=== PATIENT | female | born 1990 | race Two or more races ===

== ENCOUNTER 2019-06-03 13:14 | Emergency (ER) | payer OTHER ==
[2019-06-03 13:32] VITALS: BMI 53.7
--- NOTE | 2019-06-03 14:58 | PDOC ---
History of Present Illness - General History Source: Patient Exam Limitations: No Limitations - History of Present Illness Initial Comments: 06/03/19 15:30 Patient is a 29-year-old female who is 38 weeks gestation who presents to the ED after being sent by her nurse digital sales planner for possible preeclampsia or eclampsia. The patient went for her normal checkup and was found to have hypertension with unknown blood pressure numbers. The patient denies any headaches or visual changes. She denies any shortness of breath. She does admit to having swelling in her lower extremities for the last 1 or 2 months. She denies any fevers or chills. <Missy Troncoso - Last Filed: 06/03/19 15:48> <Milton Fields - Last Filed: 06/07/19 10:33> - General Chief Complaint: Blood Pressure Problem Stated Complaint: 38 W PREG/BP PROBLEM Time Seen by Provider: 06/03/19 14:37 Past History - Past Medical History COPD: No Other medical history: SLEEP APENA - Immunization History Immunization Up to Date: Yes - Psycho Social/Smoking Cessation Hx Smoking History: Former smoker Have you smoked in the past 12 months: No Information on smoking cessation initiated: No Hx Alcohol Use: No Drug/Substance Use Hx: No <Missy Troncoso - Last Filed: 06/03/19 15:48> <Milton Fields - Last Filed: 06/07/19 10:33> - Past Medical History Allergies/Adverse Reactions: Allergies Allergy/AdvReac Type Severity Reaction Status Date / Time No Known Allergies Allergy Verified 06/03/19 13:28 Home Medications: Ambulatory Orders Vitamins (Sjr) - 1 tab PO DAILY 06/01/19 Review of Systems - Review of Systems Comments:: 06/03/19 15:31 - Review of Systems Able to Perform ROS?: Yes Constitutional: No: Fever, Chills, Loss of Appetite, Night Sweats, Weakness HEENTM: No: Eye Pain, Vision changes, Ear Pain, Throat Pain, Throat Swelling, Mouth Pain, Difficulty Swallowing Respiratory: No: Cough, Shortness of Breath, Wheezing, Sputum Production Cardiac (ROS): No: Chest Pain, Chest Tightness, Palpitations, Irregular Heart Beat, Edema; Positive high blood pressure ABD/GI: No: Nausea, Vomiting, Abdominal Pain, Diarrhea; Positive : No Dysuria, No Hematuria, No Frequency, No Urgency, No Vaginal Discharge/ Pain, Musculoskeletal: No: Muscle Pain, Back Pain, Joint Pain, Muscle Weakness, Neck Pain; Positive pedal edema Integumentary: No: Lesions, Rash Neurological: No: Headache, Numbness, Tingling, Weakness, Speech Difficulties <Missy Troncoso D - Last Filed: 06/03/19 15:48> *Physical Exam - Vital Signs Last Vital Signs Temp Pulse Resp BP Pulse Ox 98.4 F 105 H 18 144/81 96 06/03/19 13:28 06/03/19 13:28 06/03/19 13:28 06/03/19 13:28 06/03/19 13:28 - Physical Exam 06/03/19 15:32 - Physical Exam General Appearance: Nourished, Appropriately Dressed, No Distress HEENT: EOMI, Normal Voice, No Muffled/Hoarse voice, No Nasal Congestion, No Rhinorrhea, Hearing Grossly Normal Neck: Supple, No Lymphadenopathy (R), No Lymphadenopathy (L), No Rigidity, No Decreased range of motion Respiratory/Chest: Lungs Clear, Normal Breath Sounds. No Respiratory Distress, No Accessory Muscle Use Cardiovascular: Regular Rhythm, Regular Rate, S1, S2 Gastrointestinal/Abdominal: Normal Bowel Sounds, Soft. Non-tender, No Guarding , No Rebound, No Rigidity; Positive gravid uterus Musculoskeletal: Normal Inspection. No Decreased Range of Motion; 2+ pitting edema bilateral lower extremities Extremity: Normal Capillary Refill, Normal Inspection Integumentary: Normal Color, Dry. No Rash Neurologic: stock raiser II-XII NML intact, Fully Oriented, Alert, Normal Mood/Affect, Normal Response, Normal gait without ataxia <Missy Troncoso D - Last Filed: 06/03/19 15:48> - Vital Signs Last Vital Signs Temp Pulse Resp BP Pulse Ox 98.7 F 95 H 20 119/68 96 06/03/19 16:04 06/03/19 17:30 06/03/19 17:30 06/03/19 17:30 06/03/19 13:28 <Milton Fields - Last Filed: 06/07/19 10:33> ED Treatment Course - LABORATORY CBC & Chemistry Diagram: 06/03/19 16:30 06/03/19 16:30 - ADDITIONAL ORDERS Additional order review: 06/03/19 16:30 RBC 4.38 MCV 75.3 L MCHC 32.7 RDW 17.5 H MPV 7.8 Neutrophils % 80.6 Lymphocytes % 14.4 Monocytes % 4.0 Eosinophils % 0.8 Basophils % 0.2 <Milton Fields - Last Filed: 06/07/19 10:33> Medical Decision Making - Medical Decision Making 06/03/19 14:52 Assessment: Patient is a 29-year-old female sent to the ED by her DIRECTOR OF EXHIBITS to assess for eclampsia/preeclampsia. She is 38 weeks gestation. Plan: The patient is not in active labor. Patient is without headache, or visual changes and is stable for transfer to labor and delivery for further evaluation and treatment. I spoke with Tessy in labor and delivery and she stated to send the patient right up for further evaluation and treatment. <Missy Troncoso - Last Filed: 06/03/19 15:48> - Medical Decision Making The patient was seen and evaluated in conjunction with KINZA Troncoso under my direct supervision, ancillary studies were reviewed. I agree with the plan as outlined by KINZA Troncoso. <Milton Fields - Last Filed: 06/07/19 10:33> Discharge - Discharge Information Problems reviewed: Yes <Missy Troncoso - Last Filed: 06/03/19 15:48> <Milton Fields - Last Filed: 06/07/19 10:33> - Discharge Information Clinical Impression/Diagnosis: Hypertension affecting in third trimester Condition: Stable Disposition: HOME - Additional Discharge Information Plan of Treatment: Pt to be transferred to Labor and Delivery for further evaluation of hypertension in and to assess for preeclampsia/eclampsia - Follow up/Referral Referrals: Nella Plaza MD [Staff Physician] - Azar Balderas MD [Primary Care Provider] - - Patient Discharge Instructions Additional Instructions: Patient to L&D for blood pressure check and labs. Denies any complaints of headache, epigastric pain, blurry vision at this time. As per MD - d/c home with instructions. Keep f/u appointment. Patient verbalized understanding. D/ c home in stable and undelivered condition. - Post Discharge Activity
[2019-06-03 16:10] VITALS: TEMP 98.7
[2019-06-03 16:32] LABS: EPI CELLS 10.2 /HPF (0-5/HPF); HYALINE CASTS 27 /lpf (0-8); URINE APPEARANCE CLOUDY; URINE BILIRUBIN NEGATIVE (NEGATIVE); URINE COLOR YELLOW; URINE GLUCOSE (UA) NEGATIVE (NEGATIVE); URINE KETONE NEGATIVE (NEGATIVE); URINE LEUK ESTERASE TRACE (NEGATIVE); URINE NITRITE NEGATIVE (NEGATIVE); URINE PROTEIN NEGATIVE (NEGATIVE); URINE UROBILINOGEN 0.2 mg/dL (0.2-1.0); URINE WBC 62 /hpf (0-5)
[2019-06-03 17:20] LABS: BASO % 0.2 % (0-2.0); EOS % 0.8 % (0-4.5); HEMATOCRIT 32.9 % (32.4-45.2); HEMOGLOBIN 10.8 GM/dL (10.7-15.3); LYMPH % 14.4 % (8-40); MCH 24.6 pg (25.7-33.7); MCHC 32.7 g/dl (32.0-36.0); MEAN CELL VOLUME 75.3 fl (80-96); MEAN PLT VOLUME 7.8 fl (7.5-11.1); NEUT % 80.6 % (42.8-82.8); PLATELET COUNT 255 K/MM3 (134-434); RBC 4.38 M/mm3 (3.60-5.2); RDW 17.5 % (11.6-15.6); WHITE BLOOD COUNT 12.5 K/mm3 (4.0-10.0)
[2019-06-03 17:33] LABS: INR 0.93 (0.83-1.09)
[2019-06-03 17:36] LABS: ACTIVATED PTT 29.2 SECONDS (25.2-36.5)
[2019-06-03 17:41] LABS: BLOOD UREA NITROGEN 7.8 mg/dL (7-18); CALCIUM 8.4 mg/dL (8.5-10.1); CREATININE 0.7 mg/dL (0.55-1.3); POTASSIUM 3.7 mmol/L (3.5-5.1)
[2019-06-03 17:42] LABS: URIC ACID 4.6 mg/dL (2.6-7.2)
[2019-06-03 17:56] VITALS: BP 119/68; PULSE 95
[2019-06-03 18:38] LABS: RETICULOCYTES 1.53 % (0.5-1.5)
[2019-06-03 19:48] LABS: YEAST NEGATIVE (NEGATIVE)
== END 2019-06-03 17:59 | disposition home or self-care (01) ==
LOC: JER 13:14
DX: O14.93 Unspecified pre-eclampsia, third trimester (principal); Z3A.38 38 weeks gestation of pregnancy
CPT/HCPCS: 36415; 80048; 81003; 82570; 83010; 84156; 84450; 84460; 84550; 85025; 85044; 85610; 85730; 86593; 86850; 86900; 86901; 99283-25

== ENCOUNTER 2019-06-13 06:30 | Inpatient (IN) | payer OTHER ==
[2019-06-13] MEDS: ELECTROLYTE-148 SOLN 1,000 ML IV SCH (07:15)
--- NOTE | 2019-06-13 07:45 | HP ---
Past Medical History - Primary Care Physician PCP:: Gerardo Shelton - Admission Chief Complaint: 39.3 weeks, rom, labor , morbid obesity History of Present Illness: 29 yo f 0 1 0, 39,3 weeks, [facility] 6 am today, clear fluid , has mild contraction since 630 am today , care significant for morbid obesity cx 2 cm 70 vx -3 , gross rom , positive for bloody show, nitazine positive, History Source: Patient Limitations to Obtaining History: No Limitations - Past Medical History ...: 3 ...Para: 0 ...Term: 0 ...: 0 - Past Surgical History Hx Myomectomy: No Hx Transabdominal Cerclage: No - Smoking History Smoking history: Former smoker Have you smoked in the past 12 months: No - Alcohol/Substance Use Hx Alcohol Use: No History of Substance Use: reports: None - Social History History of Recent Travel: No Home Medications - Allergies Allergies/Adverse Reactions: Allergies Allergy/AdvReac Type Severity Reaction Status Date / Time No Known Allergies Allergy Verified 06/09/19 12:31 - Home Medications Home Medications: Ambulatory Orders Vitamins (Sjr) - 1 tab PO DAILY 06/01/19 Review of Systems - Review of Systems Constitutional: reports: No Symptoms Eyes: reports: No Symptoms HENT: reports: No Symptoms Neck: reports: No Symptoms Cardiovascular: reports: No Symptoms Respiratory: reports: No Symptoms Gastrointestinal: reports: No Symptoms Genitourinary: reports: No Symptoms Breasts: reports: No Symptoms Reported Musculoskeletal: reports: No Symptoms Integumentary: reports: No Symptoms Neurological: reports: No Symptoms Endocrine: reports: No Symptoms Hematology/Lymphatic: reports: No Symptoms Psychiatric: reports: No Symptoms Physical Exam - Maternity Constitutional: Yes: Obese - Abdominal Exam/OB Fundal Height: 40 Number of Fetuses: Single Presentation: Vertex Contractions: Yes Regularity: Irregular Intensity: Moderate Monitor Mode: External Heart Rate Location: [facility] Category: I Accelerations: Non-Uniform Decelerations: None - Vaginal Exam/OB Vaginal Bleediing: Bloody Show Speculum Exam: No Dilatation (cm): 2 Effacement (%): 70 Amniotic Membrane Status: Ruptured Nitrazine Test: Positive Amniotic Fluid: Yes: Blood Stained Presentation: Vertex/Position Station: -3 - Physical Exam Musculoskeletal: Yes: WNL Edema: Yes Edema: LLE: 1+, RLE: 1+ Deep Tendon Reflex Grade: Normal +2 Hemorrhage Risk Assessment - Risk Factors Medium Risk Factors: Yes: Obesity (BMI >40) Risk Score: 1 Risk Level: Medium Risk Problem List - Problems (1) with 39 completed weeks gestation Code(s): Z3A.39 - 39 WEEKS GESTATION OF (2) membrane rupture Code(s): UCA3621 - (3) Morbid obesity due to excess calories Code(s): E66.01 - MORBID (SEVERE) OBESITY DUE TO EXCESS CALORIES (4) Gestational [-induced] hypertension without significant proteinuria , complicating childbirth Code(s): O13.4 - GESTATNL HTN WITHOUT SIGNIFICANT PROTEIN, COMP CHILDBIRTH Assessment/Plan admit FHM monitor BP DVT prophylaxis
[2019-06-13 08:13] LABS: BASO % 0.4 % (0-2.0); EOS % 0.5 % (0-4.5); HEMATOCRIT 37.7 % (32.4-45.2); HEMOGLOBIN 12.5 GM/dL (10.7-15.3); LYMPH % 13.9 % (8-40); MCH 24.8 pg (25.7-33.7); MEAN CELL VOLUME 75.1 fl (80-96); MEAN PLT VOLUME 7.9 fl (7.5-11.1); MONO % 2.9 % (3.8-10.2); NEUT % 82.3 % (42.8-82.8); PLATELET COUNT 289 K/MM3 (134-434); RBC 5.03 M/mm3 (3.60-5.2); RDW 17.7 % (11.6-15.6); WHITE BLOOD COUNT 11.9 K/mm3 (4.0-10.0)
[2019-06-13 08:29] LABS: INR 0.93 (0.83-1.09)
[2019-06-13 08:30] VITALS: BMI 61.1
[2019-06-13 08:32] LABS: ACTIVATED PTT 27.7 SECONDS (25.2-36.5)
[2019-06-13 08:33] LABS: BLOOD UREA NITROGEN 12.7 mg/dL (7-18); CALCIUM 8.3 mg/dL (8.5-10.1); CREATININE 0.6 mg/dL (0.55-1.3); POTASSIUM 3.9 mmol/L (3.5-5.1)
[2019-06-13 08:58] LABS: RPR NONREACTIVE (NONREACTIVE)
[2019-06-13] MEDS ORDERED: CITRIC ACID/SODIUM CITRATE 30 ML UNIT-DOSE CUP PO ONE (11:42)
[2019-06-13] MEDS ORDERED: ELECTROLYTE-148 SOLN 500 ML IV ONE (11:42)
--- NOTE | 2019-06-13 11:54 | PN ---
Ante-Partal Exam - Subjective Subjective: Patient evaluated for progression of labor and bloody amniotic fluid. Patient reports feeling contractions and SROM at 6am today. Vital Signs: Vital Signs Temperature 98.5 F 06/13/19 11:00 Pulse Rate 102 H 06/13/19 11:00 Respiratory Rate 06/13/19 11:00 Blood Pressure 125/74 06/13/19 11:00 O2 Sat by Pulse Oximetry (%) Bleeding: Yes (stained amniotic fluid) Bleeding Description: Heavy Headache: No Visual changes: No Right upper quadrant pain: No - Contractions Contractions: Yes Regularity: Regular Intensity: Moderate Monitor Mode: External - Exam during Labor Heart Rate: 150 Variability: Moderate Category: I Monitor Accelerations: Present Monitor Decelerations: None Exam: Vaginal Dilatation (cm): 1 Effacement (%): 20 Amniotic Membrane Status: Leaking (pronounced blood stained amniotic fluid) Presentation: Vertex Station: -3 - Assessment/Plan Assessment/Plan: 29 y/o P0 @ 39.3 wks, S/P AROM, FHT cat I, alexander bloody stained amniotic fluid in the background of GHTN. Patient was counseled regarding her condition, bleeding, and status. The concerns for early abruption discussed. Patient was offered IOL vs CD. Their respective risks, possible complications, and possible sequelae discussed at length. Patient allowed time to formulate decision and all questions answered. Patient has decided to proceed with CD. -Proceed with surgery -NICU and perianesthesia manager informed -Informed consent obtained -DVT chemo-prophylaxis post-op
[2019-06-13] MEDS ORDERED: OXYTOCIN 20 UNITS in 0.9% NS 40 UNIT/2,000 ML INFUS.BAG IV ONE (11:56)
[2019-06-13] MEDS ORDERED: ceFAZolin SODIUM 1 GM VIAL ONE (11:58)
[2019-06-13] MEDS ORDERED: morphine SULFATE/PF 0.5 MG/ML (2cc Syringe - QUVA) ONE (11:59)
[2019-06-13] MEDS ORDERED: LIDOCAINE HCL/PF 2% SDV 5ML VIAL ONE (13:20)
[2019-06-13] MEDS ORDERED: DEXAMETHASONE SOD PHOSPHATE 4 MG/1 ML VIAL ONE (13:20)
[2019-06-13] MEDS ORDERED: OXYTOCIN 10 UNITS/ML VIAL ONE (13:20)
[2019-06-13] MEDS ORDERED: KETOROLAC TROMETHAMINE 30 MG/1 ML VIAL ONE (13:27)
[2019-06-13] MEDS: OXYTOCIN 20 UNITS in 0.9% NS 20 UNIT/1,000 ML INFUS.BAG IV SCH (13:40)
[2019-06-13] MEDS ORDERED: MIDAZOLAM HCL 2 MG/2 ML SINGLE DOSE VIAL ONE (13:44)
[2019-06-13] MEDS ORDERED: IBUPROFEN 800 MG/8 ML IJ IVPB PRN ×2 (14:12→14:13)
[2019-06-13] MEDS ORDERED: ONDANSETRON 4 MG/2 ML VIAL IVPUSH PRN (14:12)
--- NOTE | 2019-06-13 14:12 | OP ---
Operative Note - Note: Operative Date: 06/13/19 (dic # [id number]) Pre-Operative Diagnosis: 29 y/o P0 @ 39.3wks, bloody amniotic fluid, suspected clinical abruption Operation: PTLCS Post-Operative Diagnosis: Same as Pre-op Surgeon: Von Oliver Auto Design Detailer: Gilbert Jackson Anesthesia: Spinal Specimens Removed: placenta Estimated Blood Loss (mls): 900 Fluid Volume Replaced (mls): 1,000 Operative Report Dictated: Yes
[2019-06-13] MEDS ORDERED: ACETAMINOPHEN 1000 MG/100 ML VIAL (NON FORMULARY) IVPB PRN (14:13)
--- NOTE | 2019-06-13 18:02 | OP ---
DATE OF OPERATION: 06/13/2019 PREOPERATIVE DIAGNOSIS: A 29-year-old para 0, 39 and 3, spontaneous rupture of membranes, alexander bloody amniotic fluid, suspected clinical abruption. POSTOPERATIVE DIAGNOSIS: A 29-year-old para 0, 39 and 3, spontaneous rupture of membranes, alexander bloody amniotic fluid, suspected clinical abruption. PROCEDURE: Primary low transverse section. COMPLICATIONS: None. ANESTHESIA: Spinal. ESTIMATED BLOOD LOSS: EBL for the procedure 900 mL. SURGEON: Kelsy Mayers MD. MED AIDE: KINZA Boo. FINDINGS: Morbidly obese patient with significant subcutaneous adipose abdominal tissue. Rectus muscles were consistent with normal anatomy. The lower uterine segment was slightly effaced, cephalic presentation. Significant bloody amniotic fluid, approximately 15% placental abruption noted intraoperatively. Uterus bilateral tubes and ovaries consistent with normal anatomy. A small 1 x 2 cm paratubal cyst noted on the left side. DESCRIPTION OF PROCEDURE: The patient was taken to the operating room where anesthesia was found to be adequate. She was then prepped and draped in the normal sterile fashion. Puga catheter was placed atraumatically. Appropriate timeout took place. Pfannenstiel skin incision was made with the scalpel and carried to the underlying fascia with the Bovie. The fascia was incised in the midline and incision extended laterally with sharp dissection. The underlying rectus muscles were dissected off sharply and bluntly from the fascia. They were in the midline, and the peritoneum was entered bluntly. An Alberto retractor was placed without difficulty, and proper exposure noted. Slightly effaced lower uterine segment incision was made with the scalpel and extended laterally with blunt dissected. The ROT and rest of findings as documented above. The infant was delivered through a surgical incision with mild fundal pressure without difficulty. No nuchal cord was present. Umbilical cord was clamped and cut after delay. Sample for gases and blood obtained. The infant was handed off to the waiting NICU staff. The placenta was retrieved manually and intact. Findings as previously mentioned. The intrauterine cavity was cleared of al clots and debris. The uterine incision was reapproximated with 1-0 Polysorb running locked suture. Excellent structural reapproximation and hemostasis achieved with 1-layer suture. The retractors were retrieved from the abdomen without difficulty. Secondary inspection of the incision, rectus muscles fascia interface, and bladder dome was noted to be intact. The rectus muscles were reapproximated manually, and the fascial incision was reapproximated with 0 Polysorb running nonlocked sutures. Excellent structural reapproximated achieved and confirmed by digital palpation by the surgeon. Subcutaneous tissues were copiously irrigated. Bleeders neutralized with Bovie cautery. Subcutaneous tissue were reapproximated with 2-0 chromic subcutaneous sutures. Skin incision was reapproximated with surgical sheila. Taken in stable condition to recovery room. Instrument counts were reported as correct x2 by the staff. KELSY MAYERS MD [id number] YANELIS
[2019-06-13] MEDS: CEFAZOLIN 1 GM/D5W 1 GM/50 ML BAG IVPB SCH (20:02)
[2019-06-13] MEDS: HEPARIN NA (PORCINE) 5,000 UNITS/ML 1ML VIAL SQ SCH (22:37)
[2019-06-14] MEDS ORDERED: METHYLERGONOVINE MALEATE 0.2 MG/1 ML AMP IM ONE (01:30)
[2019-06-14 01:59] LABS: BASO % 0.9 % (0-2.0); HEMATOCRIT 32.9 % (32.4-45.2); HEMOGLOBIN 10.8 GM/dL (10.7-15.3); LYMPH % 9.1 % (8-40); MCH 24.8 pg (25.7-33.7); MCHC 32.9 g/dl (32.0-36.0); MEAN CELL VOLUME 75.2 fl (80-96); MEAN PLT VOLUME 7.8 fl (7.5-11.1); MONO % 3.6 % (3.8-10.2); NEUT % 86.4 % (42.8-82.8); PLATELET COUNT 268 K/MM3 (134-434); RBC 4.38 M/mm3 (3.60-5.2); RDW 17.6 % (11.6-15.6); WHITE BLOOD COUNT 18.3 K/mm3 (4.0-10.0)
[2019-06-14] MEDS: CEFAZOLIN 1 GM/D5W 1 GM/50 ML BAG IVPB SCH (04:00)
[2019-06-14] MEDS: HEPARIN NA (PORCINE) 5,000 UNITS/ML 1ML VIAL SQ SCH ×3 (07:05→22:26)
[2019-06-14 08:30] LABS: BASO % 0.3 % (0-2.0); EOS % 0.2 % (0-4.5); HEMATOCRIT 31.1 % (32.4-45.2); HEMOGLOBIN 10.3 GM/dL (10.7-15.3); LYMPH % 16.4 % (8-40); MCH 24.9 pg (25.7-33.7); MCHC 33.2 g/dl (32.0-36.0); MEAN CELL VOLUME 75.1 fl (80-96); MEAN PLT VOLUME 7.8 fl (7.5-11.1); MONO % 3.9 % (3.8-10.2); NEUT % 79.2 % (42.8-82.8); PLATELET COUNT 264 K/MM3 (134-434); RBC 4.15 M/mm3 (3.60-5.2); RDW 17.6 % (11.6-15.6); WHITE BLOOD COUNT 14.6 K/mm3 (4.0-10.0)
--- NOTE | 2019-06-14 08:34 | PN ---
Progress Note (short form) - Note Progress Note: Anesthesia/pain Pt seen and examined S:Alert and awake comfortable O: Vital Signs Temperature 98.6 F 06/14/19 06:00 Pulse Rate 108 H 06/14/19 06:00 Respiratory Rate 06/14/19 06:00 Blood Pressure 122/67 06/14/19 06:00 O2 Sat by Pulse Oximetry (%) 99 06/13/19 14:50 CBC, BMP 06/14/19 07:25 06/13/19 07:42 A/P: Current Active Problems membrane rupture (Acute) Gestational [-induced] hypertension without significant proteinuria, complicating childbirth (Acute) Morbid obesity due to excess calories (Acute) with 39 completed weeks gestation (Acute) s/p c section Doing well post op Continue current care Denzel Graff MD
--- NOTE | 2019-06-14 11:59 | PN ---
Post Progress Note - Subjective Subjective: Patient doing well, ambulating, attempting to breast feed, lochia decreased, voiding. Post Day: 1 Type of Delivery: Primary C/S Vital Signs: Vital Signs Temperature 98.7 F 06/14/19 09:49 Pulse Rate 100 H 06/14/19 09:49 Respiratory Rate 20 06/14/19 09:49 Blood Pressure 125/62 06/14/19 09:49 O2 Sat by Pulse Oximetry (%) 99 06/13/19 14:50 Breast Exam: Yes: Other (deferred) Uterus: Yes: Fundus Firm Incision: Yes: Dressing dry and intact (removed), [place] intact Abdomen/GI: Yes: Abdomen soft (obese) Lochia, amount: Small Extremities: Yes: Calves non-tender Perineum: Yes: Intact Activity: Ambulating - Labs Labs: CBC WBC 14.6 K/mm3 (4.0-10.0) H 06/14/19 07:25 RBC 4.15 M/mm3 (3.60-5.2) 06/14/19 07:25 Hgb 10.3 GM/dL (10.7-15.3) L 06/14/19 07:25 Hct 31.1 % (32.4-45.2) L 06/14/19 07:25 MCV 75.1 fl (80-96) L 06/14/19 07:25 MCH 24.9 pg (25.7-33.7) L 06/14/19 07:25 MCHC 33.2 g/dl (32.0-36.0) 06/14/19 07:25 RDW 17.6 % (11.6-15.6) H 06/14/19 07:25 Plt Count 264 K/MM3 (134-434) 06/14/19 07:25 MPV 7.8 fl (7.5-11.1) 06/14/19 07:25 Absolute Neuts (auto) 11.6 K/mm3 (1.5-8.0) H 06/14/19 07:25 Neutrophils % 79.2 % (42.8-82.8) 06/14/19 07:25 Lymphocytes % 16.4 % (8-40) D 06/14/19 07:25 Monocytes % 3.9 % (3.8-10.2) 06/14/19 07:25 Eosinophils % 0.2 % (0-4.5) D 06/14/19 07:25 Basophils % 0.3 % (0-2.0) / 07:25 Nucleated RBC % 0 % (0-0) / 07:25 Assessment/Plan 29 y/o on POD # 1 in stable condition, S/P PLTCS for abruption -Continue PP/post-op care -Anticipate D/C on pod # 3 -Encourage ambulation and breast feeding -Continue DVT chemo-prophylaxis
[2019-06-14] MEDS: IBUPROFEN 600 MG TABLET (FP) PO PRN ×2 (13:03→20:09)
[2019-06-14] MEDS: SIMETHICONE 80 MG TAB.CHEW (FP) PO PRN ×2 (13:03→20:09)
[2019-06-14] MEDS ORDERED: BISACODYL 10 MG SUPP.RECT RC PRN (14:13)
[2019-06-15] MEDS: IBUPROFEN 600 MG TABLET (FP) PO PRN ×3 (04:59→19:43)
[2019-06-15] MEDS: SIMETHICONE 80 MG TAB.CHEW (FP) PO PRN ×3 (04:59→19:41)
[2019-06-15] MEDS: HEPARIN NA (PORCINE) 5,000 UNITS/ML 1ML VIAL SQ SCH ×2 (10:28→22:30)
--- NOTE | 2019-06-15 11:30 | PN ---
Post Progress Note - Subjective Subjective: Patient is ambulating, tolerating PO, lochia decreased, voiding Post Day: 2 Type of Delivery: Primary C/S Vital Signs: Vital Signs Temperature 98.8 F 06/14/19 22:00 Pulse Rate 104 H 06/14/19 22:00 Respiratory Rate 20 06/14/19 22:00 Blood Pressure 118/64 06/14/19 22:00 O2 Sat by Pulse Oximetry (%) 99 06/13/19 14:50 Uterus: Yes: Fundus Firm Incision: Yes: [place] intact (dry, no erythema, no fluctuance, no collections) Abdomen/GI: Yes: Abdomen soft Lochia, amount: Small Extremities: Yes: Calves non-tender Perineum: Yes: Intact Activity: Ambulating - Labs Labs: CBC WBC 14.6 K/mm3 (4.0-10.0) H 06/14/19 07:25 RBC 4.15 M/mm3 (3.60-5.2) 06/14/19 07:25 Hgb 10.3 GM/dL (10.7-15.3) L 06/14/19 07:25 Hct 31.1 % (32.4-45.2) L 06/14/19 07:25 MCV 75.1 fl (80-96) L 06/14/19 07:25 MCH 24.9 pg (25.7-33.7) L 06/14/19 07:25 MCHC 33.2 g/dl (32.0-36.0) 06/14/19 07:25 RDW 17.6 % (11.6-15.6) H 06/14/19 07:25 Plt Count 264 K/MM3 (134-434) 06/14/19 07:25 MPV 7.8 fl (7.5-11.1) 06/14/19 07:25 Absolute Neuts (auto) 11.6 K/mm3 (1.5-8.0) H 06/14/19 07:25 Neutrophils % 79.2 % (42.8-82.8) 06/14/19 07:25 Lymphocytes % 16.4 % (8-40) D 06/14/19 07:25 Monocytes % 3.9 % (3.8-10.2) 06/14/19 07:25 Eosinophils % 0.2 % (0-4.5) D 02// 07:25 Basophils % 0.3 % (0-2.0) 06/14/19 07:25 Nucleated RBC % 0 % (0-0) 06/14/19 07:25 Assessment/Plan 29 y/o on POD # 2 in stable condition, S/P PLTCS for abruption -Continue PP/post-op care -Anticipate D/C on pod # 3 -Encourage ambulation and breast feeding -Continue DVT chemo-prophylaxis
--- NOTE | 2019-06-15 11:36 | DS ---
Physical Examination Vital Signs: Vital Signs Temperature 98.8 F 06/14/19 22:00 Pulse Rate 104 H 06/14/19 22:00 Respiratory Rate 06/14/19 22:00 Blood Pressure 118/64 06/14/19 22:00 O2 Sat by Pulse Oximetry (%) 99 06/13/19 14:50 Findings/Remarks: Patient is doing well, PP/post-op precautions discussed and all questions answered. Patient instructed to follow up within a week for incision check Constitutional: Yes: Well Nourished, No Distress Eyes: Yes: WNL HENT: Yes: Atraumatic Neck: Yes: Supple Cardiovascular: Yes: Regular Rate and Rhythm Respiratory: Yes: Regular Gastrointestinal: Yes: Normal Bowel Sounds ...Rectal Exam: Yes: Deferred Renal/: Yes: Other (deferred) Breast(s): Yes: Other (deferred) Musculoskeletal: Yes: WNL Extremities: Yes: WNL Edema: Yes Edema: LLE: Trace, RLE: Trace (no CT) Integumentary: Yes: WNL Wound/Incision: Yes: Clean/Dry, Well Approximated, [place] Intact Neurological: Yes: Alert, Oriented ...Motor Strength: WNL Psychiatric: Yes: Alert, Oriented Labs: CBC, BMP 06/14/19 07:25 06/13/19 07:42 Discharge Summary Problems reviewed: Yes Reason For Visit: PROM and placental abruption, remote from delivery Current Active Problems membrane rupture (Acute) Gestational [-induced] hypertension without significant proteinuria, complicating childbirth (Acute) Morbid obesity due to excess calories (Acute) with 39 completed weeks gestation (Acute) Procedures: Principal: [facility] Hospital Course: Patient was admitted to L&D due to PROM, remote from delivery. Amniotic fluid with alexander blood concerning for possible placental abruption. 15 % placental abruption confirmed intra-op. Patient recovered appropriately. Plan of Treatment: see below Condition: Stable - Instructions Diet, Activity, Other Instructions: Please return to regular diet as tolerated. No strenuous activity until cleared by physician. Follow up within a week for incision check Referrals: Von Oliver MD [Staff Physician] - Disposition: HOME - Home Medications Comprehensive Discharge Medication List: Ambulatory Orders Vitamins (Sjr) - 1 tab PO DAILY 06/01/19 Acetaminophen [Tylenol] 650 mg PO Q6H PRN #30 capsule MDD 5 06/14/19 Ibuprofen 600 mg PO Q6H PRN #30 tablet 06/14/19 Oxycodone HCl 5 mg PO Q6H PRN 3 Days #12 tablet [facility] 5 06/14/19
[2019-06-15] MEDS: ELECTROLYTE-148 SOLN 1,000 ML IV SCH (14:24)
[2019-06-15] MEDS: OXYTOCIN 20 UNITS in 0.9% NS 20 UNIT/1,000 ML INFUS.BAG IV SCH (14:24)
[2019-06-15] MEDS: oxyCODONE HCL 5 MG TABLET PO PRN (19:42)
[2019-06-16] MEDS: SIMETHICONE 80 MG TAB.CHEW (FP) PO PRN ×2 (04:36→10:47)
[2019-06-16] MEDS: IBUPROFEN 600 MG TABLET (FP) PO PRN ×2 (04:36→10:47)
[2019-06-16] MEDS: oxyCODONE HCL 5 MG TABLET PO PRN (04:37)
[2019-06-16 07:33] LABS: BASO % 0.4 % (0-2.0); EOS % 0.8 % (0-4.5); HEMATOCRIT 29.2 % (32.4-45.2); HEMOGLOBIN 9.5 GM/dL (10.7-15.3); LYMPH % 10.4 % (8-40); MCH 24.7 pg (25.7-33.7); MCHC 32.5 g/dl (32.0-36.0); MEAN CELL VOLUME 76.1 fl (80-96); MEAN PLT VOLUME 7.5 fl (7.5-11.1); MONO % 3.1 % (3.8-10.2); NEUT % 85.3 % (42.8-82.8); PLATELET COUNT 278 K/MM3 (134-434); RBC 3.83 M/mm3 (3.60-5.2); RDW 17.5 % (11.6-15.6); WHITE BLOOD COUNT 14.3 K/mm3 (4.0-10.0)
--- NOTE | 2019-06-16 09:11 | PN ---
Progress Note (short form) - Note Progress Note: Discharge summary is reflective of examination and counseling on day of discharge. patient cleared for discharge.
[2019-06-16] MEDS: HEPARIN NA (PORCINE) 5,000 UNITS/ML 1ML VIAL SQ SCH (10:47)
[2019-06-16 15:01] VITALS: BP 141/80; PULSE 105; TEMP 97.5
[2019-06-16] MEDS: OXYTOCIN 20 UNITS in 0.9% NS 20 UNIT/1,000 ML INFUS.BAG IV SCH (15:02)
--- NOTE | 2019-06-20 17:13 | PATH ---
Surgical Pathology Report Patient Name: DEBORAH WALKER Med. Rec. #: [id number] /Age/Gender: 1990 (Age: 29) / F Account: [id number] [facility] OBS/SENIOR LEAD JAVA DEVELOPER Taken: 06/13/2019 Received: 06/16/2019 Reported: 06/20/2019 Physicians: Von Oliver MD Specimen(s) Received PLACENTA Clinical History , 39.3 weeks, primary for suspected placenta abruption, SPAB x1 2019 History of sleep apnea, morbid obesity Final Diagnosis PLACENTA, SECTION: 690 G THIRD TRIMESTER PLACENTA, MODERATE TO SEVERE ACUTE CHORIOAMNIONITIS, AND TRIVASCULAR UMBILICAL CORD WITH MODERATE ACUTE PHLEBITIS AND ASSOCIATED FUNISITIS. Electronically Signed Carmen Diaz M.D. Gross Description The specimen is received fresh labeled placenta and is a 690 gram, 17.5 x 17.0 x 4.0 cm. placenta with attached membranes and umbilical cord. The attached membranes are geller, translucent with focal opacities and insert marginally. The umbilical cord measures 10 cm. in length and averages 1 cm. in diameter. The cord inserts eccentrically, 2 cm. to the nearest margin. No true knots or strictures are identified. Cut surface of the umbilical cord reveals 3 vessels. The surface is balderas blue with moderate fibrin deposition and appropriate caliber vessels. The maternal surface is red-brown with focal defects. Sectioning reveals red-brown, spongy parenchyma. No lesions are identified. Can Handler sections are submitted in three cassettes as follows: 1- membrane rolls and umbilical cord; 2-3- full thickness sections of placenta. 06/19/2019 [facility]06/19/2019
== END 2019-06-16 15:10 | disposition home or self-care (01) | DRG 540 ==
LOC: JLDR 06:30 → J3W 16:20
PROVIDERS: ADMIT Student in an Organized Health Care Education/Training Program; ATTEND Student in an Organized Health Care Education/Training Program
PROC: 10D00Z1 Extraction of Products of Conception, Low, Open Approach (ICD-10-PCS; principal; 2019-06-13)
DX: O45.93 Premature separation of placenta, unspecified, third trimester (principal); O13.4 Gestational [pregnancy-induced] hypertension without significant proteinuria, complicating childbirth; O41.8X30 Other specified disorders of amniotic fluid and membranes, third trimester, not applicable or unspecified; Z3A.39 39 weeks gestation of pregnancy; Z37.0 Single live birth
CPT/HCPCS: 36415; 36600; 80048; 82803; 85025; 85362; 85384; 85461; 85610; 85730; 86593; 86850; 86900; 86901; 86999; 87389; 88307-TC; J1644

== ENCOUNTER 2023-07-22 09:27 | Emergency (ER) | payer OTHER ==
[2023-07-22 09:31] VITALS: RESP 18; BMI 34.5
[2023-07-22] MEDS ORDERED: ACETAMINOPHEN INJECTION 100 ML IVPB ONE (10:22)
[2023-07-22] MEDS: SODIUM CHLORIDE 0.9% 500 ML INFUS.BAG IV ONE (10:37)
[2023-07-22] MEDS: ACETAMINOPHEN 1000 MG/100 ML BAG IVPB ONE (10:37)
[2023-07-22 11:23] LABS: BASO % 0.2 % (0-2.0); EOS % 0.6 % (0-4.5); HEMATOCRIT 43.7 % (32.4-45.2); HEMOGLOBIN 14.5 GM/dL (10.7-15.3); LYMPH % 5.7 % (8-40); MCH 26.3 pg (25.7-33.7); MCHC 33.2 g/dl (32.0-36.0); MEAN CELL VOLUME 79.2 fl (80-96); MONO % 4.9 % (3.8-10.2); NEUT % 88.6 % (42.8-82.8); PLATELET COUNT 267 10^3/uL (134-434); RBC 5.51 M/mm3 (3.60-5.2); RDW 14.4 % (11.6-15.6); WHITE BLOOD COUNT 18.2 K/mm3 (4.0-10.0)
[2023-07-22 11:28] LABS: POTASSIUM 3.4 mmol/L (3.5-5.1)
[2023-07-22 11:30] LABS: CALCIUM 9.1 mg/dL (8.5-10.1)
[2023-07-22 11:31] LABS: ALBUMIN 3.6 g/dl (3.4-5.0)
[2023-07-22 11:34] LABS: CREATININE 0.7 mg/dL (0.55-1.3)
[2023-07-22 11:36] LABS: BILIRUBIN,TOTAL 0.5 mg/dL (0.2-1); TOT PROT 7.6 g/dl (6.4-8.2)
[2023-07-22 14:38] VITALS: BP 104/65; PULSE 105; TEMP 100.4
[2023-07-22] MEDS ORDERED: DEXAMETHASONE SOD PHOSPHATE 10 MG/1 ML VIAL ONE (14:41)
[2023-07-22] MEDS ORDERED: KETOROLAC TROMETHAMINE 15 MG/ML VIAL ONE (14:41)
[2023-07-22] MEDS: DEXAMETHASONE SOD PHOSPHATE 10 MG/1 ML VIAL IVPUSH ONE (14:47)
[2023-07-22] MEDS: KETOROLAC TROMETHAMINE 15 MG/ML VIAL IVPUSH ONE (14:47)
[2023-07-22] MEDS: PENICILLIN G BENZATHINE 1,200,000 UNIT/2 ML PFS IM ONE (15:04)
== END 2023-07-22 15:09 | disposition home or self-care (01) ==
LOC: JERFT 09:27 → JER 09:27 → JERFT 15:09
PROC: 3E033NZ Introduction of Analgesics, Hypnotics, Sedatives into Peripheral Vein, Percutaneous Approach (ICD-10-PCS; principal; 2023-07-22)
PROC: 3E033GC Introduction of Other Therapeutic Substance into Peripheral Vein, Percutaneous Approach (ICD-10-PCS; 2023-07-22)
PROC: 3E0333Z Introduction of Anti-inflammatory into Peripheral Vein, Percutaneous Approach (ICD-10-PCS; 2023-07-22)
PROC: 3E02329 Introduction of Other Anti-infective into Muscle, Percutaneous Approach (ICD-10-PCS; 2023-07-22)
DX: J02.0 Streptococcal pharyngitis (principal); R50.9 Fever, unspecified; R13.10 Dysphagia, unspecified
CPT/HCPCS: 36415; 70491-TC; 80053; 84703; 85025; 87651; 99285-25; J0131; J1100; Q9967